=== PATIENT | female | born 1970 | race Caucasian/White ===

== ENCOUNTER 2018-07-18 09:11 | Day surgery (SDC) | payer OTHER ==
[2018-07-17 09:04] VITALS: BMI 36.0
[~2018-07-18 09:11] MED LIST: DEXAMETHASONE SOD PHOSPHATE 10 MG/ML 1 ML VIAL IV ONE; HEPARIN SODIUM,PORCINE 5,000 UNIT/ML 1 ML VIAL SQ ONE; LACTATED RINGERS 1,000 ML IV SCH; MIDAZOLAM 2 MG/2 ML VIAL IV PRN; ONDANSETRON 4 MG/2 ML VIAL IVP ONE; Pre Op ABX Message 1 EACH MISC MISCELLANE ONE; fentaNYL (PF) 50 MCG/ML 2 ML AMP IV PRN
[2018-07-18 09:32] VITALS: RESP 16; TEMP 97.5
[2018-07-18] MEDS ORDERED: LIDOCAINE 1% 20 ML VIAL (10MG/ML) FOR IV START INTRADERMA ONE (09:40)
[2018-07-18] MEDS ORDERED: fentaNYL (PF) 50 MCG/ML 2 ML AMP ONE (10:11)
[2018-07-18] MEDS ORDERED: KETOROLAC 30 MG/ML 1 ML VIAL ONE (10:11)
[2018-07-18] MEDS ORDERED: PROPOFOL 10 MG/ML 20 ML VIAL IV ONE (10:11)
[2018-07-18] MEDS ORDERED: MIDAZOLAM 2 MG/2 ML VIAL ONE (10:11)
[2018-07-18] MEDS ORDERED: SODIUM CHLORIDE 0.9% 50 ML with ceFAZolin 2,000 MG IV ONE ×2 (10:28)
[2018-07-18] MEDS ORDERED: BUPIVACAIN-EPI 0.5%-1:200,000 30 ML VIAL SQ ONE ×2 (10:30)
--- NOTE | 2018-07-18 11:00 | P.OP ---
Date of Procedure: 07/18/18 Preoperative Diagnosis: Epidermal inclusion cyst 2 on back Postoperative Diagnosis: Epidermal inclusion cyst 2 on back Procedure(s) Performed: Excision of epidermal cyst 2 on back Anesthesia: MAC, local Surgeon: Enma Granados Pathology: other (Right back inclusion cyst, midline back inclusion cyst) Condition: stable Disposition: same day Indications for Procedure: 47-year-old female presented initially to the surgery office with an infected inclusion cyst of the back. An I&D was performed. On follow-up, the patient has requested removal of this cyst and an additional cyst on the back. Plan is for excision and OR. Patient was explained the risks, benefits and alternatives to the procedure. She did provide consent prior to attending the operating suite. Operative Findings: Right back inclusion cyst, removed Midline back inclusion cyst, removed Description of Procedure: The patient was brought to the operating suite and placed in left lateral decubitus position on the operating room table. Sedation was provided by anesthesia. Local anesthetic was administered after the patient was prepped and draped in sterile fashion. Elliptical incision was made around the first inclusion cyst which was on the right side of the back. Dissection was carried in a 3-60 fashion to remove the cyst in its entirety along with capsule. Hemostasis was maintained with electrocautery. An additional elliptical incision was then made in the midline of the back of the palpable inclusion cyst. Dissection was carried in a 360 fashion with electrocautery to remove the cyst in its entirety, including capsule. Hemostasis was maintained with electrocautery. Both sites were then irrigated. Skin incision sites were closed with mattress suture of 2-0 nylon. Sterile dressing was applied. The patient was awakened in the operating suite and taken to post anesthesia care unit in stable condition.
[2018-07-18 11:22] VITALS: BP 102/68; PULSE 69
== END 2018-07-18 11:33 | disposition home or self-care (01) ==
LOC: OR 09:11
PROVIDERS: ATTEND Surgery
DX: L72.3 Sebaceous cyst (principal); Z83.3 Family history of diabetes mellitus; Z82.49 Family history of ischemic heart disease and other diseases of the circulatory system; Z80.49 Family history of malignant neoplasm of other genital organs; F17.200 Nicotine dependence, unspecified, uncomplicated; Z98.51 Tubal ligation status
CPT/HCPCS: 81025; 88304; 11403; 11402; J2250; J1644; J1100; J2405; J3010; J1885; J0690; J2704

== ENCOUNTER → 2023-05-06 | Outpatient (CLI) | payer BC ==
--- NOTE | 2023-05-09 08:57 | MM ---
Reason for Exam: Screening (asymptomatic). Last mammogram was performed 7 year(s) and 8 month(s) ago. Patient History: Menarche at age 11. First Full-Term at age 19. Last menstrual period: 05/01/2023 Risk Values: Nanette 5 year model risk: 0.8%. NCI Lifetime model risk: 6.9%. Prior Study Comparison: 09/08/2015 Bilateral Screening Mammogram, [facility]. Tissue Density: The breast tissue is heterogeneously dense. This may lower the sensitivity of mammography. Findings: Analyzed By CAD. There is no suspicious group of microcalcifications or new suspicious mass in either breast. Overall Assessment: Benign, BI-RAD 2 Management: Screening Mammogram of both breasts in 1 year. . Patient should continue monthly self-breast exams. A clinical breast exam by your physician is recommended on an annual basis. This exam should not preclude additional follow-up of suspicious palpable abnormalities. Note on Nanette scores and lifetime risk: 1. A Nanette score greater than 3% is considered moderate risk. If this is the case, consider specialist referral to assess eligibility for a risk reducing agent. 2. If overall lifetime risk for the development of breast cancer is 20% or higher, the patient may qualify for future screening with alternating mammogram and breast MRI. Electronically signed and approved by: Orlando Carmichael M.D. Radiologis
== END | disposition home or self-care (01) ==
LOC: RADMAMWWP 11:20
PROVIDERS: ATTEND Family Medicine
DX: Z12.31 Encounter for screening mammogram for malignant neoplasm of breast (principal)
CPT/HCPCS: 77063; 77067

== ENCOUNTER → 2024-09-05 | Outpatient (CLI) | payer BC ==
--- NOTE | 2024-09-05 12:26 | MM ---
Reason for Exam: Screening (asymptomatic). Last mammogram was performed 1 year(s) and 4 month(s) ago. Patient History: Menarche at age 11. First Full-Term at age 19. Last menstrual period: 08/16/2024 Risk Values: Nanette 5 year model risk: 0.9%. NCI Lifetime model risk: 6.8%. Prior Study Comparison: 09/08/2015 Bilateral Screening Mammogram, [facility]. 05/06/2023 Bilateral MG 3D screening mammo w/cad, [facility]. Tissue Density: There are scattered areas of fibroglandular density. Findings: Analyzed By CAD. Right breast: There is no suspicious group of microcalcifications or new suspicious mass. Left breast: There is no suspicious group of microcalcifications or new suspicious mass. Overall Assessment: Negative, BI-RAD 1 Management: Screening Mammogram of both breasts in [address] [facility] will attempt to contact patient to return for supplemental views and ultrasound if indicated. Patient should continue monthly self-breast exams. A clinical breast exam by your physician is recommended on an annual basis. This exam should not preclude additional follow-up of suspicious palpable abnormalities. Note on Nanette scores and lifetime risk: 1. A Nanette score greater than 3% is considered moderate risk. If this is the case, consider specialist referral to assess eligibility for a risk reducing agent. 2. If overall lifetime risk for the development of breast cancer is 20% or higher, the patient may qualify for future screening with alternating mammogram and breast MRI. [facility], , 09/05/2024 12:23 PM. Electronically signed and approved by: John Rainey DO
== END | disposition home or self-care (01) ==
LOC: RADMAMWWP 10:33
PROVIDERS: ATTEND Family Medicine
CPT/HCPCS: 77063; 77067